=== PATIENT | female | born 1985 | race Two or more races ===

== ENCOUNTER 2024-12-22 10:54 | Emergency (ER) | payer MEDICAID, SELFPAY ==
[2024-12-22 11:56] VITALS: BP 115/76; PULSE 79; RESP 18; TEMP 36.8; O2SAT 98; BMI 25.3
--- NOTE | 2024-12-22 12:09 | EKG_ITS ---
[facility] Test Date: 2024-12-22 Pat Name: IVAN LUNA Department: Room: - Gender: Female [employer]: : 1985 Requested By: ED Temporary Provider Order Number: [id number] Reading MD: ED Temporary Provider Measurements Intervals [place] Rate: 71 P: 43 VT: 144 QRS: 55 QRSD: 81 T: 43 QT: 400 QTc: 436 Interpretive Statements SINUS RHYTHM No previous ECG available for comparison /store/S0/[id number]/ecg/[id number].pdf
--- NOTE | 2024-12-22 12:13 | XR_ITS ---
Examination: PA lateral chest 2 views Technique: Upright PA lateral chest 2 views Exam date and time: December 22, 2024 at 1225 hrs. Comparison 07/14/2022 Indications: Chest pain beginning one week ago. Findings: No significant cardiac enlargement The lungs are clear. The osseous structures are intact Impression: No active disease
--- NOTE | 2024-12-22 12:14 | XR_ITS ---
Examination: Abdomen sonogram, Limited Date and time of exam: December 22, 2024 at 1248 hrs. Indications: Upper abdominal pain beginning 3 days ago with nausea Technique: Real-time granados scale transabdominal sonographic images of the upper abdomen obtained. Findings: Absent gallbladder Normal common bile duct 0.3 cm Pancreatic head 2.3 cm Liver 13.6 cm fatty infiltration Normal hepatopedal portal venous flow Patent IVC Impression: Absent gallbladder Normal common bile duct Fatty liver
--- NOTE | 2024-12-22 12:15 | PD.EDRME ---
Rapid Medical Screening Exam E Arrival date/time: 12/22/24 10:54 This is a 38-year-old female presents to the emergency department with complaints of upper left quadrant abdominal pain patient reports her pain radiates into her chest. I have greeted and performed a focused initial assessment of this patient. Initial appropriate labs ordered at this time. A comprehensive ED assessment and evaluation of the patient and analysis of all test and completion of medical decision making process will be conducted by additional ED provider. Chief Complaint: Abdominal Pain Time Seen by Provider: 12/22/24 11:51 Vital signs: Vital Signs Temperature 98.2 F 12/22/24 11:56 Pulse Rate 79 12/22/24 11:56 Respiratory Rate 18 12/22/24 11:56 Blood Pressure 115/76 12/22/24 11:56 Pulse Oximetry (%) 98 12/22/24 11:56 Oxygen Delivery Method Room Air 12/22/24 11:56
[2024-12-22 12:37] LABS: Basophils % (Auto) 0 % (0-2.5); Eosinophils % (Auto) 0 % (0-10); Hematocrit 41.6 % (36.0-46.0); Immature Granulocytes % (Auto) 1 % (0-0); Immature Granulocytes Auto 0.05 Thou/mm3 (0.00-0.00); Lymphocytes # (Auto) 2.3 Thou/mm3 (1.0-4.8); Lymphocytes % (Auto) 24 % (10-50); Mean Corpuscular HGB Conc 36.1 g/dl (31.0-37.0); Mean Corpuscular Hemoglobin 31.8 pg (25.0-35.0); Mean Corpuscular Volume 88 fL (80-100); Monocytes # (Auto) 0.6 Thou/mm3 (0.0-0.8); Monocytes % (Auto) 6 % (0-12); Neutrophils # (Auto) 6.7 Thou/mm3 (1.8-7.7); Neutrophils % (Auto) 69 % (37-80); Nucleated Red Blood Cell % 0 /100 WBC (0); Platelet Count 300 Thou/mm3 (140-440); RDW Standard Deviation 38.4 fL (36.4-46.3); Red Blood Count 4.71 Miln/mm3 (4.00-5.20); White Blood Count 9.7 Thou/mm3 (3.6-11.0)
[2024-12-22 12:48] LABS: Alanine Aminotransferase 29 U/L (10-49); Albumin, Serum 4.6 gm/dL (3.5-5.0); Albumin/Globulin Ratio 1.4 (1.2-2.2); Alkaline Phosphatase 98 U/L (46-116); Anion Gap 10 (7-16); Aspartate Amino Transferase 26 U/L (0-34); BUN/Creatinine Ratio 12 Ratio (12-20); Bilirubin,Total 0.5 mg/dL (0.3-1.2); Blood Urea Nitrogen 7 mg/dL (9-23); Calcium 9.5 mg/dL (8.3-10.6); Calcium (Corrected) 9.5 mg/dL (8.5-10.1); Carbon Dioxide 22.8 mMol/L (20.0-31.0); Chloride 107 mMol/L (98-107); Creatinine (Component) 0.6 mg/dL (0.6-1.3); Globulin 3.3 gm/dL (2.3-3.5); Glucose 93 mg/dL (74-106); Lipase 36 U/L (12-53); Osmolality,Calculated 277 (275-295); Potassium 3.9 mMol/L (3.4-5.1); Sodium 140 mMol/L (136-145); Total Protein 7.9 gm/dL (5.7-8.2); Troponin I < 0.002 ng/mL (0.0-0.045); eGFR > 60 See Note
[2024-12-22] MEDS: MG HYD/AL HYD/SIME (Maalox Reg) SUSP 30 ML UDC PO (13:41)
[2024-12-22] MEDS: LIDOCAINE VISCOUS 2% 15 ML UDC PO (13:41)
[2024-12-22 13:50] LABS: Collection Type, Urine Clean Catch
[2024-12-22 13:59] LABS: Bilirubin,Urine Negative (Negative); Blood,Urine Negative (Negative); Clarity,Urine Clear (Clear/Hazy); Color,Urine Lt-Yellow (Lt Yel-Yel); Glucose, Urine Negative (Negative); Ketones,Urine 1+ (Negative); Leukocyte Esterase,Urine Negative (Negative); Nitrite,Urine Negative (Negative); Protein,Urine Negative (Neg - Trace); RBC,Urine 1 /hpf (0-3); Specific Gravity,Urine 1.012 (1.001-1.035); Squamous Epithelial Cell,Urine 4 /hpf (0-5); Urobilinogen,Urine Negative mg/dL (0.0-1.0); WBC,Urine 2 /hpf (0-5)
[2024-12-22 14:00] VITALS: BP 123/69; PULSE 74; RESP 19; TEMP 36.9; O2SAT 100
[2024-12-22 14:05] VITALS: BP 123/69; PULSE 61; RESP 20; TEMP 36.9; O2SAT 99
[2024-12-22 14:20] LABS: HCG Qualitative,Urine Negative
[2024-12-22 14:25] LABS: Amphetamine/Methamp Scrn,U Negative (Negative); Barbiturate Screen,Urine Negative (Negative); Benzodiazepines Screen,Urine Negative (Negative); Benzoylecgonine Screen, Ur Negative (Negative); Fentanyl Screen,Urine Negative (Negative); Opiate Screen,Urine Negative (Negative); THC Screen,Urine Negative (Negative)
--- NOTE | 2024-12-22 14:39 | PC.NURSE ---
jewel hole driller Jose Martin #[id number] was used for pt to obtain medical history
--- NOTE | 2024-12-22 14:40 | PD.EDABDPN ---
ED Abdominal Pain RME/HPI General Chief Complaint: Abdominal Pain Stated complaint: LLQ ABDOMINAL PAIN Time seen by provider: 12/22/24 11:51 Arrival date/time: 12/22/24 10:54 RME / HPI RME / HPI narrative: 38-year-old female patient came in for evaluation regarding left upper quadrant pain. Onset of symptoms for several months, getting worse for the last 3 days pain described as dull ache, severity mild. Associated with nausea. Patient denies any fever denies any vomiting denies any other complaints abdominal surgery includes laparoscopic cholecystectomy. Related Data Previous Rx's ?Medication ?Instructions ?Recorded hydrocodone 5 mg-acetaminophen 325 1 tab PO Q6H #20 tabs 07/15/22 mg tablet bisacodyl 5 mg tablet,delayed 5 mg PO QDAY PRN constipation #30 07/21/22 release tabs dicyclomine 20 mg tablet 20 mg PO TID #30 tabs 12/22/24 pantoprazole 40 mg tablet,delayed 40 mg PO QDAY #20 tabs 12/22/24 release (Protonix) Allergies Allergy/AdvReac Type Severity Reaction Status Date / Time No Known Allergies Allergy Verified 12/22/24 10:56 Review of Systems Review of Systems Narrative Review of Systems: Review of system reviewed and within normal limits except mentioned in HPI ED Exam Narrative Physical exam: VITAL SIGNS: Reviewed. GENERAL APPEARANCE: Alert and interactive, follows commands, no acute distress, HEAD AND FACE: Non-traumatic. ENT: PERRL, pink conjunctivitis, eyelid no trauma, Mucous membrane moist. NECK: Supple, nontender, no nuchal rigidity. CHEST: No tenderness, no crepitus, no paradoxical movement, no retractions. LUNGS: Clear, well ventilated, symmetric, no rales, no wheezing, no ronchi, no stridor, good breath sounds bilaterally. HEART: Regular rate, regular rhythm, no murmur, no gallops. ABDOMEN: Soft, positive bowel sounds, nondistended, no guarding, left upper quadrant tenderness, no rebound, no masses, RECTAL: Deferred. GENITAL: Deferred. NEUROLOGICAL: Gross motor function intact sensory function intact, Appropriate for age. MUSCULOSKELETAL: low back nontender, full range of motion. EXTREMITIES: Nontender, full range of motion. SKIN: Color pink, dry, no rash, no lacerations, no abrasions, no contusions. LYMPHATICS: Deferred. Course Quality Measures none Orders Category Date Time Status EKG (ED ONLY) *Do not use* NOW Care 12/22/24 12:09 Completed EKG (ED Only) Stat Exams 12/22/24 12:09 Draft US gall bladder Stat Exams 12/22/24 12:14 Completed XR chest 2V Stat Exams 12/22/24 12:13 Completed CBC Stat Lab 12/22/24 12:20 Completed Comprehensive Metabolic Panel Stat Lab 12/22/24 12:20 Completed Drug Screen,Urine Stat Lab 12/22/24 13:35 Completed HCG Qualitative,Urine Stat Lab 12/22/24 13:35 Completed Lipase Stat Lab 12/22/24 12:20 Completed Troponin I Stat Lab 12/22/24 12:20 Completed Urinalysis Stat Lab 12/22/24 13:35 Completed Lidocaine 2% Viscous [Xylocaine 2% Viscous] Med 12/22/24 13:10 Discontinued 15 ml PO X1 ONE mg Hyd/Al Hyd/Lyndsey Susp [Maalox Susp] Med 12/22/24 13:10 Discontinued 30 ml PO X1 ONE Vital Signs Vital signs: Vital Signs Temperature 98.2 F 12/22/24 11:56 Pulse Rate 79 12/22/24 11:56 Respiratory Rate 18 12/22/24 11:56 Blood Pressure 115/76 12/22/24 11:56 Pulse Oximetry (%) 98 12/22/24 11:56 Oxygen Delivery Method Room Air 12/22/24 11:56 Abdominal Pain MDM MDM Narrative MDM Narrative:: 38-year-old female patient came in for evaluation regarding left upper quadrant pain. Onset of symptoms for several months, getting worse for the last 3 days pain described as dull ache, severity mild. Associated with nausea. Patient denies any fever denies any vomiting denies any other complaints abdominal surgery includes laparoscopic cholecystectomy. EKG showed normal sinus rhythm, 71 bpm, no ST segment elevation depression noted. Patient's workup today all came back normal including ultrasound of the gallbladder. No acute pathology noted. Patient appears nontoxic and hemodynamically stable. Patient discharged home and instructed to follow-up with primary care provider in 24 to 48 hours. Instructed to return to the emergency department immediately if worsening of symptoms Patient data External records reviewed:: None Clinical information provided by:: patient Social determinants that could affect healthcare access:: none Patient has the following chronic illnesses:: None How is presenting disease/condition affected by chronic disease/condition?: no chronic disease Evaluation data The following diagnostics were reviewed and interpreted by me:: lab results, radiology exam(s) and EKG tracing(s) Lab and/or radiology exams considered but not ordered:: None Interpretation Summary: None Medications / Prescriptions Medications or Prescriptions considered but not ordered:: None Medication administrations:: Medication Administration History Discontinued Medications Al Hydrox/Mg Hydrox/Simethicone (Mg Hyd/Al Hyd/Lyndsey (Maalox Reg) Susp 30 Ml Udc) 30 ml PO X1 ONE Stop: 12/22/24 13:11 Last Admin: 12/22/24 13:41 Dose: 30 ml Documented By: NATALYA Lidocaine HCl (Lidocaine Viscous 2% 15 Ml Udc) 15 ml PO X1 ONE Stop: 12/22/24 13:11 Last Admin: 12/22/24 13:41 Dose: 15 ml Documented By: NATALYA Maalox, lidocaine Consultations Consultation(s) initiated? (list below): No Diagnosis Differential diagnosis abdominal pain: abdominal pain, constipation and gastroenteritis Most likely diagnosis given after review of the tests above:: Abdominal pain, gastritis Admission Indicated Admission indicated?: not indicated Admission Request Was there a request for admission?: No Disposition Plan Disposition Plan: Discharge Discharge Attestation Discharge Attestation: The patient was given an opportunity to ask questions and understood the discharge instructions. Discharge instructions specifically effects, indications for sooner follow up or return to the emergency department, and the expected course of current diagnosis. Patient condition: Stable Discharge Plan Plan Patient Disposition: HOME (Self Care) Disposition Comment: Stable Prescriptions/Referrals Prescriptions/Med Rec: New dicyclomine 20 mg tablet 20 mg PO TID Qty: 30 0RF pantoprazole [Protonix] 40 mg tablet,delayed release (DR/EC) 40 mg PO QDAY Qty: 20 0RF No Action hydrocodone-acetaminophen 5-325 mg tablet 1 tab PO Q6H MDD 4 Qty: 20 0RF bisacodyl 5 mg tablet,delayed release (DR/EC) 5 mg PO QDAY PRN (Reason: constipation) Qty: 30 0RF Problem List Clinical Impression: Abdominal pain Patient/Caregiver Discharge Instructions Discharge Activity: activity as tolerated Education Materials: Abdominal Pain Additional Instructions: Thank you for the opportunity for serving you today. You are stable for discharged . You are advised to: Follow-up with your PCP in 1 to 2 days Return to ED for worsening of symptoms Increase oral fluids Take medication as prescribed Print Language: Divehi Stand Alone Forms: [employer] Award Info., Patient Portal Info Letter
[2024-12-22 15:50] VITALS: BP 123/69; PULSE 66; RESP 20; TEMP 36.9; O2SAT 100
== END 2024-12-22 17:26 | disposition home or self-care (01) ==
PROVIDERS: Nurse Practitioner Primary Care; Emergency Provider Emergency Medicine
DX: R10.12 Left upper quadrant pain (principal)
CPT/HCPCS: 36415; 71046; 76705; 80053; 80307; 81001; 81025; 83690; 84484; 85025; 93005; 99284; J3490; A9270